=== PATIENT | female | born 1960 | race Caucasian/White ===

== ENCOUNTER 2016-03-31 07:56 | Outpatient (CLI) | payer OTHER | END 2016-03-31 07:57 | disposition home or self-care (01) | DX: Z00.00 Encounter for general adult medical examination without abnormal findings (principal) ==

== ENCOUNTER 2016-04-06 | Emergency (ER) | payer OTHER | END 2016-04-06 14:05 | disposition home or self-care (01) ==

== ENCOUNTER 2016-07-06 08:30 | Outpatient (CLI) | payer OTHER | END 2016-07-06 08:31 | disposition home or self-care (01) | DX: Z12.31 Encounter for screening mammogram for malignant neoplasm of breast (principal) ==

== ENCOUNTER 2017-04-27 10:03 | Outpatient (CLI) | payer OTHER ==
--- NOTE | 2017-04-27 12:10 | XRAY Report ---
THREE VIEW RIGHT FOOT: 04/27/2017 CLINICAL INDICATION: Posterior heel pain. FINDINGS: AP, lateral, and oblique views of the right foot demonstrate posterior calcaneal spurring. There is no evidence of acute fracture. 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 IMPRESSION: DEGENERATIVE CHANGES. NO EVIDENCE OF FRACTURE. TD: 04/27/2017 12:09
== END 2017-04-27 10:04 | disposition home or self-care (01) ==
LOC: DI 10:03
PROVIDERS: ATTEND Podiatrist
DX: M19.071 Primary osteoarthritis, right ankle and foot (principal)

== ENCOUNTER 2017-05-26 13:50 | Outpatient (CLI) | payer OTHER ==
--- NOTE | 2017-05-26 17:16 | Ultrasound Report ---
RIGHT BREAST ULTRASOUND: 05/26/2017 CLINICAL INDICATION: Palpable abnormality right upper outer quadrant. TECHNIQUE: Real-time scanning was performed with commercial pest control representative static images obtained. FINDINGS: Ultrasound of the palpable abnormality identified by the patient was performed. At this site, there is a hypoechoic 6 x 4 x 4 mm nodule. The margins are minimally lobulated, and there is posterior acoustic shadowing. The appearance is suspicious. Biopsy is recommended. The nodule appears amenable to ultrasound-guided core needle biopsy. Superficial and just superior to the nodule is an incidental lipoma, measuring 10 x 6 x 6 mm. IMPRESSION: SUSPICIOUS HYPOECHOIC NODULE. RECOMMENDATIONS: Biopsy. The nodule appears amenable to ultrasound-guided core needle biopsy. BIRADS category 4 suspicious abnormality. Results and recommendations discussed with the patient at the time of the examination, and called to Peyton Cabrera PA-C on 05/26/2017. Biopsy is scheduled for 06/22/2017 at 9:45 a.m. TD: 05/26/2017 17:15
--- NOTE | 2017-05-26 17:28 | Mammography Report ---
DIGITAL DIAGNOSTIC BILATERAL MAMMOGRAM: 05/26/2017 CLINICAL INDICATION: Palpable abnormality right upper outer quadrant. COMPARISON: 07/06/2016, 01/16/2015, 02/19/2013, 01/31/2012, 01/19/2011, 12/15/2009. TECHNIQUE: Bilateral CC and MLO views, right true lateral view. A marker was placed at the site of palpable abnormality indicated by the patient. FINDINGS: The breasts demonstrate scattered fibroglandular densities bilaterally. Biopsy marker in the left breast is stable. Coarse and punctate, typically benign calcifications are present. No definite mammographic abnormality is appreciated in the right upper outer quadrant, at the site of marker. Please also refer to right breast ultrasound of the same day. IMPRESSION: SUSPICIOUS ABNORMALITY, WITH A SOLID HYPOECHOIC NODULE ON ULTRASOUND. RECOMMENDATIONS: Biopsy. The nodule appears amenable to ultrasound-guided core needle biopsy. BIRADS category 4 suspicious abnormality. Results and recommendations discussed with the patient at the time of the examination, and called to Peyton Cabrera PA-C on 05/26/2017. Biopsy is scheduled for 06/22/2017 at 9:45 a.m. STANDARD QUALIFYING STATEMENTS 1. This examination was reviewed with the aid of Computed-Aided Detection (CAD). 2. A negative or benign imaging report should not delay biopsy if clinically suspicious findings are present. Consider surgical consultation if warranted. More than 5% of cancers are not identified by imaging. 3. Dense breasts may obscure an underlying neoplasm. TD: 05/26/2017 17:27
== END 2017-05-26 13:51 | disposition home or self-care (01) ==
LOC: DI 13:50
PROVIDERS: ATTEND Physician Assistant Medical
DX: N64.4 Mastodynia (principal); N63.11 Unspecified lump in the right breast, upper outer quadrant
CPT/HCPCS: 76642; 77066

== ENCOUNTER 2017-07-06 08:27 | Outpatient (CLI) | payer OTHER ==
[2017-07-06 13:48] LABS: BASOPHILS # (AUTO) 0.1 10^3/uL (0.0-0.1); BASOPHILS % (AUTO) 1.4 %; EOSINOPHILS # (AUTO) 0.1 10^3/uL (0.0-0.7); EOSINOPHILS % (AUTO) 1.6 %; HGB - HEMOGLOBIN 13.2 g/dL (12.0-16.0); LYMPHOCYTES % (AUTO) 26.6 %; MEAN CORPUSCULAR HEMOGLOBIN 29.5 pg (27.0-31.0); MEAN CORPUSCULAR HGB CONC 33.3 g/dL (32.0-36.0); MEAN CORPUSCULAR VOLUME 88.8 fL (81.0-99.0); MEAN PLATELET VOLUME 8.7 fL (7.9-10.8); MONOCYTES # (AUTO) 0.4 10^3/uL (0.0-1.0); MONOCYTES % (AUTO) 10.6 %; NEUTROPHILS # (AUTO) 2.2 10^3/uL (1.5-6.6); NEUTROPHILS % (AUTO) 59.8 %; PLT - PLATELET COUNT 254 10^3/uL (130-450); RED BLOOD COUNT 4.47 10^6/uL (4.20-5.40); RED CELL DISTRIBUTION WIDTH 13.6 % (12.0-15.0); WHITE BLOOD COUNT 3.8 x10^3/uL (4.8-10.8)
[2017-07-06 14:04] LABS: ALBUMIN 3.9 g/dL (3.2-5.5); ALBUMIN/GLOBULIN RATIO 1.4 (1.0-2.2); ALKALINE PHOSPHATASE 75 IU/L (42-121); ALT ALANINE AMINOTRANSFERASE 13 IU/L (10-60); AST ASPARTATE AMINOTRANSFERASE 16 IU/L (10-42); BILIRUBIN,TOTAL 0.5 mg/dL (0.2-1.0); BUN - BLOOD UREA NITROGEN 15 mg/dL (6-20); CALCIUM 8.8 mg/dL (8.5-10.3); CARBON DIOXIDE - CO2 29 mmol/L (21-32); CHLORIDE 105 mmol/L (101-111); CHOL/HDL RATIO 2.7 (<4.4); CHOLESTEROL 231 mg/dL; CREATININE 0.6 mg/dL (0.4-1.0); GFR - MDRD 103 (>89); GLUCOSE 92 mg/dL (70-100); HDL CHOLESTEROL 85 mg/dL; SODIUM 139 mmol/L (135-145); TOTAL PROTEIN 6.6 g/dL (6.7-8.2)
[2017-07-06 14:09] LABS: HB2 TOTAL 14.3 g/dL; HEMOGLOBIN A1C 0.52 g/dL; HEMOGLOBIN A1C % 5.5 % (4.6-6.2)
[2017-07-06 14:25] LABS: LDL CHOLESTEROL,DIRECT 112 mg/dL; LDLD/HDL RATIO 1.3 (<4.4)
== END 2017-07-06 08:28 ==
LOC: LAB.WCP 08:27
PROVIDERS: ATTEND Family Medicine
DX: Z00.00 Encounter for general adult medical examination without abnormal findings (principal)
CPT/HCPCS: 36415; 80053; 80061; 83036; 83721; 84443; 85025

== ENCOUNTER 2018-02-15 13:22 | Outpatient (CLI) | payer OTHER ==
--- NOTE | 2018-02-15 16:29 | CARDIAC PROCEDURE NOTE ---
DATE OF SERVICE: 02/15/2018 Physician: Karen Puga MD, [facility] INDICATIONS: Chest pain. CARDIAC RISK FACTORS: Postmenopausal status. SUMMARY: After signing informed consent, the patient underwent a Moris protocol treadmill stress test. Resting heart rate 67, peak heart rate 140 (86% predicted maximum heart rate for age). Resting blood pressure 106/60, peak blood pressure 148/84. The patient exercised for 6 minutes and 19 seconds on a Moris protocol treadmill stress test. She achieved a peak heart rate of 140 (86% PMHR), 7.4 METs. The patient had moderate shortness of breath and "2/10 chest pressure in the right upper central chest" at peak. The chest pain resolved after 2 minutes of recovery. BASELINE ELECTROCARDIOGRAM: Normal sinus rhythm, vertical axis, left atrial enlargement. ELECTROCARDIOGRAM AT PEAK: 0.[address] depressions the inferolateral leads (not specific for ischemia). IMPRESSION: 1) Fair exercise tolerance. 2) Nonspecific ST segment changes seen, by EKG criteria at an adequate level of stress. 3) She had SOB and chest pain that did not have the typical quality of angina. 4) No imaging study was ordered with this test. cc: Peyton Mishra PA-C TD: 02/15/2018 16:15 BRIAN
== END 2018-02-15 13:23 | disposition home or self-care (01) ==
LOC: DI 13:22
PROVIDERS: ATTEND Physician Assistant
DX: R07.89 Other chest pain (principal); R06.02 Shortness of breath; R94.31 Abnormal electrocardiogram [ECG] [EKG]
CPT/HCPCS: 93017

== ENCOUNTER 2018-10-04 16:02 | Outpatient (CLI) | payer OTHER ==
--- NOTE | 2018-10-04 16:30 | CT Report ---
Reason: PER MD OFFICE, NO AUTH REQUIRED. "PRIOR AUTH IS N Procedure Date: 10/04/2018 Accession Number: [id number] / [id number] Procedure: CT - MAXILLOFACIAL WO CPT Code: FULL RESULT: EXAM: CT MAXILLOFACIAL WITHOUT CONTRAST EXAM DATE: 10/04/2018 04:11 PM. CLINICAL HISTORY: 57-year-old with history of fall 5 weeks prior presenting with headache and facial pain. Evaluate for intracranial pathology. COMPARISONS: None. TECHNIQUE: Thin-section axial images were acquired of the face without contrast. Post-processing: Coronal and sagittal reformats. Other: None. In accordance with CT protocol optimization, one or more of the following dose reduction techniques were utilized for this exam: automated exposure control, adjustment of mA and/or KV based on patient size, or use of iterative reconstructive technique. FINDINGS: Soft Tissue: The soft tissues of the face appear normal. There are punctate calcifications seen within the tonsillar crypts. Otherwise the visualized pharynx and larynx appear Normal. Bilateral infratemporal fossa appear normal. Orbits: Symmetric and unremarkable. Bones: No fracture or bone lesion. 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 Sinuses: Normal. No mucosal thickening or fluid levels. Other: None. IMPRESSION: 1. No definite facial bone fracture seen. 2. 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 RADIA The call report notification system was initiated by Dr. Alberto Michelle at 04:29 PM on 10/04/2018. ADDENDUM: 10/04/2018 16:44 The above call report findings were discussed with MARI Turner by Dr. Alberto Michelle at 04:44 PM on 10/04/2018.
--- NOTE | 2018-10-04 16:32 | CT Report ---
Reason: HEADACHE Procedure Date: 10/04/2018 Accession Number: [id number] / [id number] Procedure: CT - HEAD WO CPT Code: FULL RESULT: EXAM: CT HEAD EXAM DATE: 10/04/2018 04:11 PM. CLINICAL HISTORY: 57-year-old with fall 5 weeks prior presenting with persistent headache. Evaluate for intracranial pathology. COMPARISON: BRAIN W/WO 01/16/2015 8:37 AM. TECHNIQUE: Multiaxial CT images were obtained from the foramen magnum to the vertex. Reformats: Sagittal and coronal. IV contrast: None. In accordance with CT protocol optimization, one or more of the following dose reduction techniques were utilized for this exam: automated exposure control, adjustment of mA and/or KV based on patient size, or use of iterative reconstructive technique. FINDINGS: Parenchyma: No intraparenchymal hemorrhage. No evidence of mass, midline shift, or CT findings of infarction. Almodovar-white differentiation is distinct. Extraaxial Spaces: Normal for age. No subdural or epidural collections identified. Ventricles: Normal in size and position. Sinuses and Orbits: Imaged paranasal sinuses, orbits, and mastoids show no significant abnormality. Bones: No evidence of fracture or calvarial defect. Other: None. IMPRESSION: 1. No definite acute intracranial pathology seen; specifically, no acute infarct, acute intracranial hemorrhage, mass, hydrocephalus or midline shift. 2. No definite calvarial fracture. RADIA The call report notification system was initiated by Dr. Alberto Michelle at 04:31 PM on 10/04/2018. ADDENDUM: 10/04/18 16:45 The above call report findings were discussed with MARI Turner by Dr. Alberto Michelle at 04:45 PM on 10/04/2018.
== END 2018-10-04 16:03 | disposition home or self-care (01) ==
LOC: DI 16:02
PROVIDERS: ATTEND Physician Assistant Medical
DX: R51 Headache (principal); M26.603 Bilateral temporomandibular joint disorder, unspecified
CPT/HCPCS: 70450; 70486

== ENCOUNTER 2018-12-05 10:40 | Outpatient (CLI) | payer OTHER ==
[2018-12-05 10:59] LABS: BASOPHILS # (AUTO) 0.1 10^3/uL (0.0-0.1); BASOPHILS % (AUTO) 0.9 %; EOSINOPHILS # (AUTO) 0.1 10^3/uL (0.0-0.7); HGB - HEMOGLOBIN 13.6 g/dL (12.0-16.0); LYMPHOCYTES # (AUTO) 1.2 10^3/uL (1.5-3.5); LYMPHOCYTES % (AUTO) 21.7 %; MEAN CORPUSCULAR HEMOGLOBIN 29.6 pg (27.0-31.0); MEAN CORPUSCULAR VOLUME 92.4 fL (81.0-99.0); MEAN PLATELET VOLUME 9.7 fL (7.9-10.8); MONOCYTES # (AUTO) 0.7 10^3/uL (0.0-1.0); MONOCYTES % (AUTO) 11.9 %; NEUTROPHILS # (AUTO) 3.5 10^3/uL (1.5-6.6); NEUTROPHILS % (AUTO) 63.1 %; PLT - PLATELET COUNT 284 10^3/uL (130-450); RED CELL DISTRIBUTION WIDTH 13.2 % (12.0-15.0); WHITE BLOOD COUNT 5.5 x10^3/uL (4.8-10.8)
[2018-12-05 11:12] LABS: ALBUMIN 4.1 g/dL (3.2-5.5); ALBUMIN/GLOBULIN RATIO 1.3 (1.0-2.2); BILIRUBIN,TOTAL 0.4 mg/dL (0.2-1.0); CALCIUM 9.1 mg/dL (8.5-10.3); CREATININE 0.6 mg/dL (0.4-1.0); TOTAL PROTEIN 7.2 g/dL (6.7-8.2)
== END 2018-12-05 10:41 | disposition home or self-care (01) ==
LOC: LAB 10:40
PROVIDERS: ATTEND Physician Assistant Medical
DX: R10.32 Left lower quadrant pain (principal)
CPT/HCPCS: 36415; 80053; 83690; 85025

== ENCOUNTER 2018-12-05 10:57 | Outpatient (CLI) | payer OTHER ==
[2018-12-05] MEDS ORDERED: IOVERSOL 320 100 ML VIAL IVP ONE ×2 (11:23→14:52)
[2018-12-05] MEDS ORDERED: IOVERSOL 320 50 ML VIAL ONE (11:23)
--- NOTE | 2018-12-05 13:27 | CT Report ---
Reason: ABDOMINAL PAIN LEFT LOWER QUADRANT Procedure Date: 12/05/2018 Accession Number: [id number] / [id number] Procedure: CT - Abdomen/Pelvis W CPT Code: FULL RESULT: EXAM: CT ABDOMEN AND PELVIS EXAM DATE: 12/05/2018 01:03 PM. CLINICAL HISTORY: ABDOMINAL PAIN LEFT LOWER QUADRANT. COMPARISONS: None. TECHNIQUE: Routine helical CT imaging was performed through the abdomen and pelvis. IV contrast: Optiray 320 100 mL. Enteric contrast: Yes. Reconstructions: Coronal and sagittal. In accordance with CT protocol optimization, one or more of the following dose reduction techniques were utilized for this exam: automated exposure control, adjustment of mA and/or KV based on patient size, or use of iterative reconstructive technique. FINDINGS: Lung Bases: Unremarkable. Liver: Normal. No masses. Gallbladder/Bile Ducts: Unremarkable. Spleen: Normal. Pancreas: Normal. Adrenal Glands: Normal. Kidneys: Normal. No masses or hydronephrosis. Peritoneal Cavity/Bowel: Normal. No free fluid, free air or adenopathy. No masses or acute inflammatory process. The appendix is well visualized and normal. No evidence of bowel obstruction, diverticulitis, or colitis. Pelvic Organs: Uterus is absent. The bladder and visualized pelvic organs are within normal limits. Vasculature: No aneurysms or other significant abnormality. Bones: No significant abnormality. Other: None. IMPRESSION: Normal abdomen and pelvis CT. No evidence diverticulitis, colitis, appendicitis, or bowel obstruction. KARLA The call report notification system was initiated by Dr. Jin Nair at 01:26 PM on 12/05/2018.
[2018-12-05] MEDS ORDERED: IOVERSOL 320 50 ML VIAL PO ONE (14:52)
== END 2018-12-05 10:58 | disposition home or self-care (01) ==
LOC: DI 10:57
PROVIDERS: ATTEND Physician Assistant Medical
DX: R10.32 Left lower quadrant pain (principal)
CPT/HCPCS: 36415; 74177; 80053; 83690; 85025; Q9967

== ENCOUNTER 2018-12-26 08:09 | Outpatient (CLI) | payer OTHER ==
--- NOTE | 2018-12-26 15:57 | Ultrasound Report ---
Reason: LLQ ABD PAIN Procedure Date: 12/26/2018 Accession Number: [id number] / [id number] Procedure: US - Pelvic w/Transvaginal CPT Code: FULL RESULT: EXAM: PELVIC ULTRASOUND EXAM DATE: 12/26/2018 09:38 AM. CLINICAL HISTORY: LLQ ABD PAIN. COMPARISON: ABDOMEN/PELVIS W/ 12/05/2018 12:58 PM. TECHNIQUE: Realtime transabdominal pelvic scan performed to identify the uterus and adnexa and as an overview of other pelvic structures, followed by transvaginal scan to provide greater detail of the uterus and adnexa, with static image documentation. FINDINGS: Uterus: Surgically absent Right Ovary: 2.4 x 1 x 1.3 cm, volume 1.6 cc. Normal echotexture and blood flow. Left Ovary: 1.9 x 1.2 x 1.7 cm, volume 1.9 cc. Normal echotexture and blood flow. Free Fluid: None. Other: None. IMPRESSION: Normal pelvic ultrasound status post hysterectomy.. RADIA
== END 2018-12-26 08:10 | disposition home or self-care (01) ==
LOC: DI 08:09
PROVIDERS: ATTEND Physician Assistant Medical
DX: R10.32 Left lower quadrant pain (principal); Z90.710 Acquired absence of both cervix and uterus
CPT/HCPCS: 76830; 76856

== ENCOUNTER 2019-10-02 07:43 | Outpatient (CLI) | payer OTHER ==
[2019-10-02 12:26] LABS: BASOPHILS # (AUTO) 0.1 10^3/uL (0.0-0.1); BASOPHILS % (AUTO) 1.4 %; EOSINOPHILS # (AUTO) 0.1 10^3/uL (0.0-0.7); EOSINOPHILS % (AUTO) 2.1 %; HGB - HEMOGLOBIN 13.2 g/dL (12.0-16.0); LYMPHOCYTES # (AUTO) 1.2 10^3/uL (1.5-3.5); LYMPHOCYTES % (AUTO) 26.8 %; MEAN CORPUSCULAR HGB CONC 32.1 g/dL (32.0-36.0); MEAN CORPUSCULAR VOLUME 93.4 fL (81.0-99.0); MEAN PLATELET VOLUME 10.6 fL (7.9-10.8); MONOCYTES # (AUTO) 0.6 10^3/uL (0.0-1.0); MONOCYTES % (AUTO) 13.4 %; NEUTROPHILS # (AUTO) 2.4 10^3/uL (1.5-6.6); NEUTROPHILS % (AUTO) 56.1 %; PLT - PLATELET COUNT 247 10^3/uL (130-450); RED CELL DISTRIBUTION WIDTH 12.9 % (12.0-15.0); WHITE BLOOD COUNT 4.3 x10^3/uL (4.8-10.8)
[2019-10-02 12:56] LABS: ALBUMIN 3.8 g/dL (3.2-5.5); ALBUMIN/GLOBULIN RATIO 1.5 (1.0-2.2); ALKALINE PHOSPHATASE 83 IU/L (42-121); ALT ALANINE AMINOTRANSFERASE 13 IU/L (10-60); AST ASPARTATE AMINOTRANSFERASE 15 IU/L (10-42); BILIRUBIN,TOTAL 0.9 mg/dL (0.2-1.0); BUN - BLOOD UREA NITROGEN 14 mg/dL (6-20); CARBON DIOXIDE - CO2 29 mmol/L (21-32); CHLORIDE 103 mmol/L (101-111); CHOL/HDL RATIO 2.6 (<4.4); CHOLESTEROL 228 mg/dL; CREATININE 0.6 mg/dL (0.4-1.0); GLUCOSE 97 mg/dL (70-100); HDL CHOLESTEROL 89 mg/dL; LDL CHOLESTEROL,CALCULATED 131 mg/dL; LDL/HDL RATIO 1.5 (<4.4); SODIUM 140 mmol/L (135-145); TOTAL PROTEIN 6.4 g/dL (6.7-8.2); VLDL CHOLESTEROL 8 mg/dL
== END 2019-10-02 07:44 | disposition home or self-care (01) ==
LOC: LAB.WCP 07:43
PROVIDERS: ATTEND Physician Assistant Medical
DX: Z00.00 Encounter for general adult medical examination without abnormal findings (principal)
CPT/HCPCS: 36415; 80053; 80061; 83721; 84443; 85025